=== PATIENT | female | born 1930 | race Caucasian/White ===

== ENCOUNTER 2018-06-29 00:33 | Emergency (ER) | payer OTHER ==
--- NOTE | 2018-06-29 00:49 | PDOC ---
Attending Attestation - Resident Resident Name: Kenney Shearer - ED Attending Attestation I have performed the following: I have examined & evaluated the patient, The case was reviewed & discussed with the resident, I agree w/resident's findings & plan - HPI HPI: 06/29/18 01:13 Pt comes from the [facility]; she cut her J-TUBE with a pair of scissors. She has sutures holding the remaining tube in place. Pt is belligerent and confused when she speaks. - Physicial Exam PE: 06/29/18 01:14 Agree with resident exam. - Medical Decision Making 06/29/18 01:14 Pre op labs and admit the patient; surg/gi will be called. 06/29/18 01:30 Our general surgeon wants pt admitted to the hospital where the gastrojejunostomy tube was placed. I spoke to [facility] trauma surgeon Dr. Grimes, and he will accept pt for ER to ER transfer. 06/29/18 01:33 <Serina Caraballo - Last Filed: 06/29/18 01:33> - HPI HPI: 06/29/18 01:53 The patient is a 88 year old female, with a significant past medical history of HTN, Alzheimers Disease, peptic ulcers, arthritis, CAD (s/p stents), and HIV, who presents to the emergency department s/p removed GJ tube. As per EMS, the patient took a scissor and cut her GJ tube 1 inch distally. The tube was placed at [facility] by Dr. Blake Grimes. Patient is a poor historian due to her Alzheimers. Allergies: NKA Past surgical history: . Primary Care Physician: Dr. Kathleen Montanez - Physicial Exam PE: 06/29/18 01:54 +GENERAL: Confused, in no acute distress HEAD: No signs of trauma EYES: PERRLA, EOMI, sclera anicteric, conjunctiva clear ENT: Auricles normal inspection, hearing grossly normal, nares patent, oropharynx clear without exudates. Moist mucosa NECK: Normal ROM, supple, no lymphadenopathy, JVD, or masses LUNGS: Breath sounds equal, clear to auscultation bilaterally. No wheezes, and no crackles HEART: Regular rate and rhythm, normal S1 and S2, no murmurs, rubs or gallops ABDOMEN: GJ tube cut 1 inch at the distal hub of the skin. Sutures in place. Green bilious material oozing and staining sheets/gown. Soft, nontender, normoactive bowel sounds. No guarding, no rebound. No masses EXTREMITIES: No calf tenderness. Normal range of motion, no edema. No clubbing or cyanosis. No cords, erythema, or tenderness NEUROLOGICAL: Cranial nerves II through XII grossly intact. Normal speech. SKIN: Warm, Dry, normal turgor, no rashes or lesions noted. <Beckie Trivedi - Last Filed: 06/29/18 01:56> Attestations - Attestations 06/29/18 01:56 Documentation prepared by Beckie Trivedi, acting as medical review specialist for Serina Caraballo MD. <Beckie Trivedi - Last Filed: 06/29/18 01:56>
[2018-06-29] MEDS ORDERED: HALOPERIDOL LACTATE 5 MG/ML IM ONE (00:54)
[2018-06-29] MEDS ORDERED: LORazepam 2 MG/ML SDV VIAL ONE (01:00)
[2018-06-29] MEDS ORDERED: HALOPERIDOL LACTATE 5 MG/ML ONE (01:00)
[2018-06-29 01:19] VITALS: TEMP 98.7; BMI 22.6
--- NOTE | 2018-06-29 01:31 | PDOC ---
History of Present Illness - General Chief Complaint: G Tube Problem Stated Complaint: G-TUBE PROBLEM Time Seen by Provider: 06/29/18 00:38 History Source: Patient - History of Present Illness Initial Comments: 06/29/18 01:24 88f with pmh of dementia, admitted on 06/03 at [facility] for perforated ulcer and placement of gastrojejeunostomy tube, subsequently discharged to [facility], sent to our ED today after she cut through her J-tube with some sharp object. Patient is agitated. which is her baseline 06/29/18 01:43 Past History - Past Medical History Allergies/Adverse Reactions: Allergies Allergy/AdvReac Type Severity Reaction Status Date / Time No Known Allergies Allergy Verified 06/29/18 00:43 - Suicide/Smoking/Psychosocial Hx Smoking History: Unknown if ever smoked Have you smoked in the past 12 months: No Information on smoking cessation initiated: No Hx Alcohol Use: No Drug/Substance Use Hx: No Review of Systems - Review of Systems Able to Perform ROS?: No (Advanced Dementia) *Physical Exam - Vital Signs Last Vital Signs Temp Pulse Resp BP Pulse Ox 98.7 F 64 16 100/55 L 99 06/29/18 00:37 06/29/18 00:37 06/29/18 00:37 06/29/18 00:37 06/29/18 00:37 - Physical Exam General Appearance: Yes: Nourished, Appropriately Dressed. No: Apparent Distress HEENT: positive: EOMI, MAIA, Normal ENT Inspection Respiratory/Chest: positive: Lungs Clear, Normal Breath Sounds. negative: Chest Tender, Respiratory Distress Cardiovascular: positive: Regular Rhythm, Regular Rate, S1, S2 Gastrointestinal/Abdominal: positive: Normal Bowel Sounds, Flat, Soft, Other (G/ J tube stem protruding, sutures in place. ). negative: Tender Extremity: positive: Normal Capillary Refill, Normal Inspection, Normal Range of Motion Integumentary: positive: Normal Color, Dry, Warm Neurologic: positive: Confused, Disoriented, Other (aggressive) ED Treatment Course - LABORATORY CBC & Chemistry Diagram: 06/29/18 01:32 06/29/18 01:32 - Medications Given in the ED: ED Medications Discontinued Medications Generic Name Dose Route Start Last Admin Trade Name Freq PRN Reason Stop Dose Admin Haloperidol 5 mg 06/29/18 00:54 06/29/18 01:09 Haldol Injection (Fast Acting) - IM 06/29/18 00:55 5 mg ONCE ONE Administration Lorazepam 2 mg 06/29/18 00:55 06/29/18 01:09 Ativan Injection - IM 06/29/18 00:56 2 mg ONCE ONE Administration Medical Decision Making - Medical Decision Making 06/29/18 01:45 Called [facility] and spoke to surgeon who will accept the patient to be transferred. 06/29/18 01:46 Will order basic pre-op labs and transfer *DC/Admit/Observation/Transfer Diagnosis at time of Disposition: Dislodged jejunostomy tube - Discharge Dispostion Disposition: TRANSFER ACUTE CARE/OTHER HOSP Condition at time of disposition: Fair Decision to Admit order: No - Referrals Referrals: Kathleen Montanez MD [Primary Care Provider] - - Patient Instructions - Post Discharge Activity - Transfer to Acute Care Facility Receiving Facility: [facility].
[2018-06-29 01:47] LABS: BASO % 0.8 % (0-2.0); HEMATOCRIT 28.2 % (32.4-45.2); HEMOGLOBIN 9.4 GM/dL (10.7-15.3); LYMPH % 18.6 % (8-40); MCH 29.8 pg (25.7-33.7); MCHC 33.3 g/dl (32.0-36.0); MEAN CELL VOLUME 89.6 fl (80-96); MEAN PLT VOLUME 8.1 fl (7.5-11.1); NEUT % 56.6 % (42.8-82.8); PLATELET COUNT 369 K/MM3 (134-434); RBC 3.14 M/mm3 (3.60-5.2); RDW 17.3 % (11.6-15.6); WHITE BLOOD COUNT 7.9 K/mm3 (4.0-10.0)
[2018-06-29 02:01] LABS: INR 1.07 (0.83-1.09); PROTHROMBIN TIME (PATIENT) 12.6 SEC (9.7-13.0)
[2018-06-29 02:17] VITALS: BP 111/55; PULSE 63
[2018-06-29 02:20] LABS: ALBUMIN 2.3 g/dl (3.4-5.0); ALK PHOS 106 U/L (45-117); ANION GAP 6 MMOL/L (8-16); BILIRUBIN,TOTAL 0.4 mg/dL (0.2-1); BLOOD UREA NITROGEN 25 mg/dL (7-18); CALCIUM 7.3 mg/dL (8.5-10.1); CHLORIDE 104 mmol/L (98-107); CO2 27 mmol/L (21-32); CREATININE 1.2 mg/dL (0.55-1.3); GLUCOSE,RANDOM 83 mg/dL (74-106); POTASSIUM 4.7 mmol/L (3.5-5.1); SGOT/AST 33 U/L (15-37); SGPT/ALT 29 U/L (13-61); SODIUM 138 mmol/L (136-145)
--- NOTE | 2018-07-04 22:16 | EKG ---
Test Reason : Blood Pressure : / mmHG Vent. Rate : 061 BPM Atrial Rate : 061 BPM P-R Int : 220 ms QRS Dur : 064 ms QT Int : 468 ms P-R-T Axes : 039 -05 064 degrees QTc Int : 471 ms POOR DATA QUALITY, INTERPRETATION MAY BE ADVERSELY AFFECTED SINUS RHYTHM WITH 1ST DEGREE A-V BLOCK LOW VOLTAGE QRS CANNOT RULE OUT ANTERIOR INFARCT , AGE UNDETERMINED ABNORMAL ECG NO PREVIOUS ECGS AVAILABLE Confirmed by JASPER WOODS MD ([id number]) on 07/04/2018 10:15:37 PM Referred By: Confirmed By:JASPER WOODS MD
== END 2018-06-29 04:30 | disposition short-term general hospital (02) ==
LOC: JER 00:33
PROC: 3E023NZ Introduction of Analgesics, Hypnotics, Sedatives into Muscle, Percutaneous Approach (ICD-10-PCS; principal; 2018-06-29)
PROC: 3E023NZ Introduction of Analgesics, Hypnotics, Sedatives into Muscle, Percutaneous Approach (ICD-10-PCS; 2018-06-29)
DX: Z43.1 Encounter for attention to gastrostomy (principal); G30.9 Alzheimer's disease, unspecified; F02.80 Dementia in other diseases classified elsewhere, unspecified severity, without behavioral disturbance, psychotic disturbance, mood disturbance, and anxiety; I25.10 Atherosclerotic heart disease of native coronary artery without angina pectoris; I10 Essential (primary) hypertension; Z95.5 Presence of coronary angioplasty implant and graft; K27.9 Peptic ulcer, site unspecified, unspecified as acute or chronic, without hemorrhage or perforation; M12.9 Arthropathy, unspecified; Z21 Asymptomatic human immunodeficiency virus [HIV] infection status
CPT/HCPCS: 36415; 80053; 85025; 85610; 86850; 86900; 86901; 93005; 93010; 96372; 99283-25